=== PATIENT | male | born 1965 | race Caucasian/White ===

== ENCOUNTER 2021-07-05 00:56 | Observation (INO) | payer MEDICARE, MEDICAID ==
[2021-07-05] MEDS ORDERED: Dextrose 50% Abboject 50 ML SYRINGE SLOW IVP PRN (01:10)
[2021-07-05] MEDS ORDERED: Guaifenesin DM 100-10/5 ML UDCUP PO PRN (01:10)
[2021-07-05] MEDS ORDERED: Dextrose 5% in Water 1,000 ML IV PRN (01:10)
[2021-07-05] MEDS ORDERED: Senokot S 8.6-50 MG TAB PO PRN (01:10)
[2021-07-05] MEDS ORDERED: Nitroglycerin 0.4 MG TAB (25 Tab Bottle) SL PRN (01:10)
[2021-07-05] MEDS ORDERED: Ondansetron PF 4 MG/2 ML Vial IVP PRN (01:10)
[2021-07-05] MEDS ORDERED: Calcium Carbonate 500 MG ChewTAB PO PRN (01:10)
[2021-07-05] MEDS ORDERED: HumaLOG 300 UNITS/3 ML VIAL SC PRN (01:10)
[2021-07-05 01:15] VITALS: BMI 38.1
[2021-07-05 04:25] LABS: Cardiac Risk 5.1 (Less than 4.5)
[2021-07-05 04:29] LABS: Troponin I 0.023 ng/mL (< 0.028)
[2021-07-05 08:53] LABS: Troponin I 0.015 ng/mL (< 0.028)
[2021-07-05] MEDS: Enoxaparin Sodium 40 MG/0.4 ML SYRINGE SC SCH (09:11)
[2021-07-05] MEDS: Folic Acid 1 MG TAB PO SCH (09:12)
[2021-07-05] MEDS: Ferrous Sulfate 325 MG TAB PO SCH (09:12)
[2021-07-05] MEDS: Aspirin Chewable 81 MG TAB PO SCH (09:12)
[2021-07-05] MEDS: metFORMIN XR 500 MG TAB PO SCH (09:12)
[2021-07-05] MEDS: Carvedilol 3.125 MG TAB PO SCH ×2 (09:12→15:37)
[2021-07-05] MEDS: Lisinopril 2.5 MG TAB PO SCH (09:12)
[2021-07-05] MEDS: Alogliptin 6.25 MG TAB PO SCH (09:13)
[2021-07-05] MEDS: Gabapentin 300 MG CAP PO SCH ×3 (09:13→20:37)
[2021-07-05] MEDS: Acetaminophen 325 MG TAB PO PRN ×2 (18:10→23:48)
[2021-07-05] MEDS ORDERED: Atorvastatin Calcium 20 MG TAB PO SCH (21:00)
[2021-07-06 07:27] VITALS: BP 131/59; TEMP 97.6
[2021-07-06] MEDS: Folic Acid 1 MG TAB PO SCH (07:28)
[2021-07-06] MEDS: Ferrous Sulfate 325 MG TAB PO SCH (07:28)
[2021-07-06] MEDS: Aspirin Chewable 81 MG TAB PO SCH (07:28)
[2021-07-06] MEDS: Lisinopril 2.5 MG TAB PO SCH (07:29)
[2021-07-06] MEDS: metFORMIN XR 500 MG TAB PO SCH (07:29)
[2021-07-06] MEDS: Alogliptin 6.25 MG TAB PO SCH (07:30)
[2021-07-06] MEDS: Gabapentin 300 MG CAP PO SCH (07:30)
[2021-07-06] MEDS: Carvedilol 3.125 MG TAB PO SCH (07:30)
[2021-07-06] MEDS: Enoxaparin Sodium 40 MG/0.4 ML SYRINGE SC SCH (07:31)
== END 2021-07-06 10:47 | disposition home or self-care (01) ==
LOC: CSHTELE 00:56
PROVIDERS: ADMIT Student in an Organized Health Care Education/Training Program; ATTEND Family Medicine
DX: R07.81 Pleurodynia (principal); I16.0 Hypertensive urgency; Z91.19 Patient's noncompliance with other medical treatment and regimen; I12.9 Hypertensive chronic kidney disease with stage 1 through stage 4 chronic kidney disease, or unspecified chronic kidney disease; E11.22 Type 2 diabetes mellitus with diabetic chronic kidney disease; N18.2 Chronic kidney disease, stage 2 (mild); E11.40 Type 2 diabetes mellitus with diabetic neuropathy, unspecified; E11.65 Type 2 diabetes mellitus with hyperglycemia; E78.5 Hyperlipidemia, unspecified; D50.9 Iron deficiency anemia, unspecified; E66.9 Obesity, unspecified; Z79.84 Long term (current) use of oral hypoglycemic drugs; Z79.899 Other long term (current) drug therapy; Z88.2 Allergy status to sulfonamides
CPT/HCPCS: 80061; 82962 ×2; 84484 ×2; 93005; 93306; 96372 ×2; G0378 ×2; 36415; 36416; 93010; J1650; J1815